=== PATIENT | female | born 1945 | race Caucasian/White ===

== ENCOUNTER → 2016-06-04 | Day surgery (SDC) | payer OTHER ==
[~2016-06-04] MED LIST: ACETAMINOPHEN/HYDROcodone 325 MG/5 MG TAB ONE; ALPR.25 PO; BUPIVACAINE/EPINEPHRINE 0.25% PF 10 ML VIAL ONE; KETOROLAC TROMETHAMINE 30 MG/ML (IVP) VIAL IV PUSH ONE; LACTATED RINGER'S 1000 ML INJ 1,000 ML ONE; LEVO50TA4 PO; LOSA100T3 PO; MIDAZOLAM HCL 2 MG/2 ML VIAL ONE; MORPHINE SULFATE 4 MG/ML INJ ONE; ONDANSETRON HCL 4 MG/2 ML VIAL IV PUSH ONE; OXYC1SOL5 PO; PROPOFOL 200 MG/20 ML AMP IV ONE; ceFAZolin 2 GM PREMIX 50 ML ONE; metroNIDAZOLE 500 MG INJ 100 ML IV ONE
--- NOTE | 2016-06-07 23:06 | TN ---
cc: CELINE CARMONA MD DATE OF SURGERY 06/04/16 PREOPERATIVE DIAGNOSIS Chronic cholecystitis and cholelithiasis. POSTOPERATIVE DIAGNOSIS Chronic cholecystitis and cholelithiasis. PROCEDURE Laparoscopic cholecystectomy ATTENDING SURGEON Natalia Carmona MD PANEL SEWER Staff ANESTHESIA General and local anesthetic ESTIMATED BLOOD LOSS Less than 10 mL COMPLICATIONS None FINDINGS Severe chronic adhesions and gallstones consistent with chronic cholecystitis and cholelithiasis. INDICATIONS FOR PROCEDURE The patient is a 70-year-old female with several month history of right upper quadrant pain with fatty food intake. Ultrasound revealed large gallstones and the patient was referred for general surgery evaluation and surgery for the gallbladder. Risks, benefits, alternatives to laparoscopic cholecystectomy were discussed with the patient and her family prior to the procedure. The patient agreed to undergo the procedure. PROCEDURE IN DETAIL After informed consent was obtained, the patient was taken to the operating room at [facility], placed under general endotracheal anesthesia. The patient's abdomen was prepped and draped in sterile fashion. Time-out was performed. The abdomen was entered with a 5-mm port with the OptiView type entry in the periumbilical area. We insufflated the abdomen and surveyed the abdomen with a 5 mm 30 degree camera. There was no evidence of any complication from our entry. At this point in time, we placed a 10-mm port in the subxiphoid position and two 5 mm ports in the right upper quadrant. We were then able to start our dissection. I dissected down gallbladder and removed multiple inflammatory adhesions. We were able to grasp the gallbladder fundus and retract it upward. This exposed the infundibulum. We were able to dissect out the [place]. We used a hook electrocautery as well as a [place] dissector. We identified the cystic duct and cystic artery and the critical view of safety was obtained. We doubly clipped the cystic duct proximal and distal and divided this with laparoscopic scissors. We clipped the cystic artery proximal and distal and divided with laparoscopic scissors. We used hook electrocautery to take the gallbladder off the gallbladder fossa without difficulty. We removed the from the gallbladder from the abdomen with the EndoCatch bag through the subxiphoid port. At this point om time we did suction out the abdomen of a few small blood clots. We did place some Surgicel on the gallbladder fossa after we got hemostasis to buttress our cautery margin to help prevent bleeding issues. Again, no evidence of any complication. No bile leak. No bleeding. We turned our attention towards closure. There was no evidence of any other intra-abdominal pathology. We removed ports under visualization with the laparoscope and expressed pneumoperitoneum. Local anesthetic was instilled prior and at the end of the procedure at all port sites. We closed the 10-mm port site with a Vicryl suture at the fascia. Closed the skin with 4-0 Monocryl and Dermabond. The patient was discontinued from anesthesia, taken to the PACU in stable condition. The patient tolerated procedure well. No apparent complications. All counts were correct. I was present and scrubbed for the entire procedure. MD PENNY Mercado/ /9:50 PM /10:47 PM ROBER
== END | disposition home or self-care (01) ==
LOC: ESDC 09:12
PROVIDERS: ATTEND Surgery
DX: K80.10 Calculus of gallbladder with chronic cholecystitis without obstruction (principal)
CPT/HCPCS: 00790; 47562; 88304; J0690; J1885; J2250; J2270; J2405; J3010; J7120